=== PATIENT | male | born 1950 | race Caucasian/White ===

== ENCOUNTER 2018-12-04 18:34 | Inpatient (IN) | payer MEDICARE ==
[~2018-12-04] VITALS: Ht 182.9 cm; Wt 102.4 kg
[2018-12-04] MEDS ORDERED: ALBUTEROL/IPRATROPIUM 2.5MG/0.5MG, 3 ML ONE (19:00)
[2018-12-04] MEDS ORDERED: ALBUTEROL/IPRATROPIUM 2.5MG/0.5MG, 3 ML NPPB ONE (19:00)
[2018-12-04] MEDS ORDERED: ASPIRIN 81 MG TABLET CHEW PO ONE (19:00)
[2018-12-04] MEDS ORDERED: FUROSEMIDE 40 MG/4 ML IVPush ONE ×2 (19:00)
[2018-12-04] MEDS ORDERED: NITROGLYCERIN OINT 2%, 1GM TP ONE ×2 (19:00→19:13)
[2018-12-04] MEDS ORDERED: MORPHINE SULFATE 4 MG/ML, 1ML IVPush PRN (19:00)
[2018-12-04] MEDS ORDERED: PLEASE ENTER ALLERGIES MC SCH (19:00)
[2018-12-04] MEDS ORDERED: SODIUM CHLORIDE FLUSH 10ML SYR IVF ONE (19:00)
[2018-12-04] MEDS ORDERED: FUROSEMIDE 40 MG/4 ML ONE (19:13)
[2018-12-04] MEDS ORDERED: ASPIRIN 81 MG TABLET CHEW ONE (19:13)
[2018-12-04 19:22] LABS: MD YES; MEAN CORPUSCULAR HEMOGLOBIN 32.3 pg (27.5-34.5); MEAN CORPUSCULAR HGB CONC 33.3 g/dL (33.2-36.2); MEAN CORPUSCULAR VOLUME 97.1 fL (81-97); MEAN PLATELET VOLUME 8.7 fL (7.4-10.4); PLATELET COUNT 96 x10^3/uL (130-400); RED BLOOD COUNT 6.36 x10^6/uL (4.38-5.82); RED CELL DISTRIBUTION WIDTH 17.6 % (9.4-14.8)
--- NOTE | 2018-12-04 19:37 | NUR ---
LAB CALLS AND REPORTS THAT ARE GOING TO REDRAW GREEN TOP FEEL SPECIMEN IS HEMOLYZED AND HAVE A K OF GREATER THAN 5. PRIMARY NURSE AND MD AWARE
--- NOTE | 2018-12-04 19:52 | NUR ---
PT. MEDICATED PER NOV. ALL MONITORS HAVE BEEN IN PLACE SINCE ARRIVAL. FAMILY REMAINS AT BS FOR SUPPORT. CALL LIGHT HAS BEEN IN REACH. PT. REPORTS FEELING BETTER AFTER BREATHING TX. 4LO2 VIA NC IN USE TO MAINTAIN O2 AT 93%. PT. RATE 90'S-105 ON MONITOR WITH FREQUENT ECTOPY. PT. DOES DENY ANY PAIN OR DISCOMFORT AT THIS TIME. 3+ BILAT LEG SWELLING NOTED. URINAL AT BS AND PT. VERBALIZED UNDERSTANDING TO CALL FOR ASSISTANCE. LAB AT BS FOR RE-DRAW.
[2018-12-04 20:09] LABS: BASOS#(MANUAL) 0.08 x10^3/uL (0-0.1); BASOS% (MANUAL) 1 % (0-1); EOS#(MANUAL) 0.16 x10^3/uL (0.0-0.4); EOS% (MANUAL) 2 % (1-7); LYMPH#(MANUAL) 1.86 x10^3/uL (1-3.4); LYMPHS% (MANUAL) 23 % (22-44); MONOS#(MANUAL) 0.97 x10^3/uL (0.3-2.7); MONOS% (MANUAL) 12 % (2-9); SEG#(MANUAL) 5.02 x10^3/uL (1.8-6.8); SEGS% (MANUAL) 62 % (42-75)
[2018-12-04 20:13] LABS: POLYCHROMASIA 1+
[2018-12-04 20:17] LABS: <PLATELET ESTIMATE> DECREASED; <PLT MORPHOLOGY> NORMAL PLT MORPH
[2018-12-04 20:19] LABS: INTERNATIONAL NORMALIZED RATIO 1.11 (0.93-1.1); PROTHROMBIN TIME 11.6 Seconds (9.6-11.5)
[2018-12-04 20:22] LABS: ALANINE AMINOTRANSFERASE 40 U/L (12-78); ANION GAP 2 mmol/L (5-15); CALCIUM 8.4 mg/dL (8.5-10.1); CHLORIDE 107 mmol/L (98-107); CREATININE 1.28 mg/dL (0.7-1.3); T4 (THYROXINE) 7.4 mcg/dL (4.5-12.1)
[2018-12-04 20:26] LABS: ALKALINE PHOSPHATASE 75 U/L (45-117); BILIRUBIN,TOTAL 0.6 mg/dL (0.2-1.0); TOTAL PROTEIN 6.4 g/dL (6.4-8.2); TROPONIN I 0.069 ng/mL (0.000-0.045)
--- NOTE | 2018-12-04 21:20 | NUR ---
DR. HUIZAR HAD BEEN BACK IN TO EVAL PT. AND DISCUSS POC FOR ADMIT WITH PT. AND FAMILY. PT. FAMILY BROUGHT HIM A SANDWICH FROM [employer] C[employer] PER OK FROM DR. HUIZAR. PT. DENIES OTHER NEEDS.
--- NOTE | 2018-12-04 21:44 | NUR ---
1ST ATTEMPT TO CALL REPORT TO FLOOR.
--- NOTE | 2018-12-04 21:51 | NUR ---
REPORT TO RAHEEM ARRIOLA. FLOOR READY FOR PT. TRANSPORT.
[2018-12-04 22:20] VITALS: BP 113/73
[2018-12-04] MEDS ORDERED: BISACODYL 10 MG SUPP PR PRN (22:30)
[2018-12-04] MEDS ORDERED: ACETAMINOPHEN 325 MG TABLET PO PRN (22:30)
[2018-12-04] MEDS ORDERED: ONDANSETRON ODT 4 MG PO PRN (22:30)
[2018-12-04 22:50] LABS: FOLATE LEVEL 12.3 ng/mL (3.1-17.5)
[2018-12-04] MEDS: NICOTINE 14MG/24 HR PATCH.TD24 TD SCH (23:21)
[2018-12-04] MEDS: SODIUM CHLORIDE FLUSH 10ML SYR IVF SCH (23:27)
[2018-12-05 02:02] VITALS: BP 118/74
[2018-12-05 02:47] LABS: BASOPHILS # (AUTO) 0.06 x10^3/uL (0-0.1); BASOPHILS % (AUTO) 1 % (0-1); EOSINOPHILS # (AUTO) 0.08 x10^3/uL (0-0.4); EOSINOPHILS % (AUTO) 1 % (1-7); LYMPHOCYTES # (AUTO) 1.07 x10^3/uL (1-3.4); LYMPHOCYTES % (AUTO) 13 % (22-44); MD NO; MEAN CORPUSCULAR HGB CONC 32.4 g/dL (33.2-36.2); MEAN CORPUSCULAR VOLUME 98.8 fL (81-97); MONOCYTES % (AUTO) 11 % (2-9); NEUTROPHILS # (AUTO) 5.88 x10^3/uL (1.8-6.8); NEUTROPHILS % (AUTO) 74 % (42-75); PLATELET COUNT 100 x10^3/uL (130-400); RED BLOOD COUNT 6.23 x10^6/uL (4.38-5.82); RED CELL DISTRIBUTION WIDTH 18.3 % (9.4-14.8)
[2018-12-05 03:08] LABS: ALANINE AMINOTRANSFERASE 44 U/L (12-78); ALBUMIN 2.9 g/dL (3.4-5.0); ANION GAP 6 mmol/L (5-15); CALCIUM 8.3 mg/dL (8.5-10.1); CHLORIDE 105 mmol/L (98-107); CREATININE 1.42 mg/dL (0.7-1.3)
[2018-12-05 03:11] LABS: ALKALINE PHOSPHATASE 85 U/L (45-117); BILIRUBIN,TOTAL 0.5 mg/dL (0.2-1.0); TOTAL PROTEIN 6.5 g/dL (6.4-8.2)
[2018-12-05 05:59] VITALS: BP 97/74
[2018-12-05] MEDS ORDERED: CARVEDILOL 3.125 MG TABLET PO SCH (06:00)
[2018-12-05 07:30] VITALS: BP 105/62
[2018-12-05 08:24] VITALS: BP 114/77
[2018-12-05] MEDS: FUROSEMIDE 40 MG/4 ML IV SCH ×3 (08:37→21:03)
[2018-12-05] MEDS: SODIUM CHLORIDE FLUSH 10ML SYR IVF SCH ×2 (08:38→21:04)
[2018-12-05] MEDS: SENNA/DOCUSATE TABLET PO SCH (08:40)
[2018-12-05] MEDS: POLYETHYLENE GLYCOL 17 GM PACKET PO SCH (08:41)
[2018-12-05 09:14] LABS: TROPONIN I 0.072 ng/mL (0.000-0.045)
[2018-12-05] MEDS: methylPREDNISolone SOD SUCC 125 MG/2 ML IVPush SCH ×2 (09:43→17:00)
[2018-12-05 10:35] LABS: CHLORIDE,URINE RANDOM 119 mmol/L; POTASSIUM,URINE RANDOM 25 mmol/L; SODIUM,URINE RANDOM 93 mmol/L
[2018-12-05 10:41] LABS: CULTURE INDICATED? NO; MICROSCOPIC NOT IND
[2018-12-05] MEDS ORDERED: ETOMIDATE 20 MG/10 ML ONE (11:23)
[2018-12-05] MEDS ORDERED: ROCURONIUM 10MG/ML,5ML ONE (11:23)
[2018-12-05] MEDS ORDERED: PROPOFOL 10 MG/ML, 100ML IV ONE (11:23)
[2018-12-05] MEDS ORDERED: ALBUTEROL/IPRATROPIUM 2.5MG/0.5MG, 3 ML NPPB PRN (12:30)
[2018-12-05] MEDS ORDERED: ALBUTEROL SULFATE 2.5 MG/3 ML NPPB PRN (12:30)
[2018-12-05 14:00] VITALS: BP 118/76
[2018-12-05 15:19] LABS: ANION GAP 2 mmol/L (5-15); CALCIUM 8.8 mg/dL (8.5-10.1); CHLORIDE 103 mmol/L (98-107); CREATININE 1.33 mg/dL (0.7-1.3)
[2018-12-05 15:29] LABS: BASOPHILS # (AUTO) 0.03 x10^3/uL (0-0.1); BASOPHILS % (AUTO) 0 % (0-1); EOSINOPHILS # (AUTO) 0.05 x10^3/uL (0-0.4); EOSINOPHILS % (AUTO) 1 % (1-7); LYMPHOCYTES # (AUTO) 0.89 x10^3/uL (1-3.4); LYMPHOCYTES % (AUTO) 13 % (22-44); MEAN CORPUSCULAR HEMOGLOBIN 31.9 pg (27.5-34.5); MEAN CORPUSCULAR HGB CONC 32.3 g/dL (33.2-36.2); MEAN CORPUSCULAR VOLUME 98.8 fL (81-97); MEAN PLATELET VOLUME 9.4 fL (7.4-10.4); MONOCYTES # (AUTO) 0.54 x10^3/uL (0.2-0.8); MONOCYTES % (AUTO) 8 % (2-9); NEUTROPHILS # (AUTO) 5.26 x10^3/uL (1.8-6.8); NEUTROPHILS % (AUTO) 78 % (42-75); PLATELET COUNT 93 x10^3/uL (130-400); RED BLOOD COUNT 6.23 x10^6/uL (4.38-5.82); RED CELL DISTRIBUTION WIDTH 17.8 % (9.4-14.8)
[2018-12-05 15:30] LABS: MD SCAN
[2018-12-05] MEDS ORDERED: FENTANYL PF 100 MCG/2ML ONE (15:35)
[2018-12-05] MEDS ORDERED: AMPICILLIN/SULBACTAM 3 GM in SODIUM CHLORIDE 0.9% 100 ML IV SCH (16:00)
[2018-12-05] MEDS ORDERED: GLUCAGON 1 MG IM PRN (16:30)
[2018-12-05] MEDS ORDERED: DEXTROSE 50%, 50ML SYRINGE IVPush PRN (16:30)
[2018-12-05] MEDS ORDERED: SENNA/DOCUSATE TABLET NG PRN (16:30)
[2018-12-05] MEDS ORDERED: SENNOSIDES 8.8 MG/5 ML ORAL SOL NG PRN (16:30)
[2018-12-05] MEDS ORDERED: LIDOCAINE-MPF 1%, 2ML ENDO PRN (16:30)
[2018-12-05] MEDS ORDERED: SODIUM CHLORIDE 0.9%, 250ML IV ONE (16:30)
[2018-12-05] MEDS ORDERED: LACTULOSE 20 GM/30 ML UDC NG PRN (16:30)
[2018-12-05] MEDS ORDERED: DEXTROSE 4 GM TAB.CHEW PO PRN (16:30)
[2018-12-05] MEDS ORDERED: PHARMACY MAY ADJ FOR RENAL FX MC SCH (16:30)
[2018-12-05] MEDS ORDERED: SODIUM CHLORIDE 0.9% 1,000 ML IV SCH (16:30)
[2018-12-05] MEDS ORDERED: BISACODYL 10 MG SUPP PR PRN (16:30)
[2018-12-05] MEDS ORDERED: PHYTONADIONE 5 MG TABLET PO STA (16:34)
[2018-12-05] MEDS: AMPICILLIN/SULBACTAM 3 GM in SODIUM CHLORIDE 0.9% 50 ML IV SCH ×2 (16:49→23:38)
[2018-12-05 17:01] LABS: BASOPHILS # (AUTO) 0.02 x10^3/uL (0-0.1); BASOPHILS % (AUTO) 0 % (0-1); EOSINOPHILS % (AUTO) 0 % (1-7); LYMPHOCYTES # (AUTO) 0.24 x10^3/uL (1-3.4); LYMPHOCYTES % (AUTO) 4 % (22-44); MD NO; MEAN CORPUSCULAR HEMOGLOBIN 32.2 pg (27.5-34.5); MEAN CORPUSCULAR HGB CONC 32.9 g/dL (33.2-36.2); MEAN PLATELET VOLUME 9.3 fL (7.4-10.4); MONOCYTES # (AUTO) 0.15 x10^3/uL (0.2-0.8); MONOCYTES % (AUTO) 3 % (2-9); NEUTROPHILS # (AUTO) 5.32 x10^3/uL (1.8-6.8); NEUTROPHILS % (AUTO) 93 % (42-75); PLATELET COUNT 88 x10^3/uL (130-400); RED BLOOD COUNT 5.96 x10^6/uL (4.38-5.82)
[2018-12-05 17:03] LABS: INTERNATIONAL NORMALIZED RATIO 1.15 (0.93-1.1)
[2018-12-05 17:05] LABS: ANION GAP 2 mmol/L (5-15); CALCIUM 8.2 mg/dL (8.5-10.1); CHLORIDE 108 mmol/L (98-107); CREATININE 1.18 mg/dL (0.7-1.3); TRIGLYCERIDES 92 mg/dL (50-200)
[2018-12-05] MEDS: NOREPINEPHRINE 4 MG in SODIUM CHLORIDE 0.9% 246 ML IV PRN ×2 (17:25→17:52)
[2018-12-05] MEDS: ALBUTEROL/IPRATROPIUM 2.5MG/0.5MG, 3 ML INLINE SCH ×2 (18:44→22:07)
[2018-12-05] MEDS: PROPOFOL 100 ML IV PRN ×2 (19:09→21:58)
[2018-12-05] MEDS: INSULIN LISPRO 100 UNITS/ML, PEN SQ-INSULIN SCH (21:00)
[2018-12-05] MEDS ORDERED: INSULIN LISPRO 100 UNITS/ML, PEN SQ-INSULIN SCH (21:00)
[2018-12-05] MEDS ORDERED: SODIUM CHLORIDE FLUSH 10ML SYR IVF SCH (21:00)
[2018-12-05 21:40] LABS: MICROSCOPIC AUTO
[2018-12-05 21:42] LABS: CULTURE INDICATED? NO
[2018-12-05 21:50] LABS: AMPHETAMINE SCREEN, URINE Negative (Negative); BARBITURATE SCREEN, URINE Negative (Negative); BENZODIAZEPINE SCREEN, URINE Negative (Negative); CANNABINOID SCREEN, URINE Negative (Negative); COCAINE SCREEN, URINE Negative (Negative); METHADONE SCREEN, URINE Negative (Negative); OPIATE SCREEN, URINE Negative (Negative)
[2018-12-05] MEDS: NICOTINE 14MG/24 HR PATCH.TD24 TD SCH (23:37)
[2018-12-06] MEDS: methylPREDNISolone SOD SUCC 125 MG/2 ML IVPush SCH ×3 (01:32→17:35)
[2018-12-06] MEDS: PROPOFOL 100 ML IV PRN ×6 (01:33→22:19)
[2018-12-06] MEDS: ALBUTEROL/IPRATROPIUM 2.5MG/0.5MG, 3 ML INLINE SCH ×6 (02:41→22:00)
[2018-12-06] MEDS: INSULIN LISPRO 100 UNITS/ML, PEN SQ-INSULIN SCH ×4 (03:00→21:00)
[2018-12-06 04:00] VITALS: BP 102/72
[2018-12-06] MEDS: AMPICILLIN/SULBACTAM 3 GM in SODIUM CHLORIDE 0.9% 50 ML IV SCH ×4 (04:47→23:18)
[2018-12-06 04:54] LABS: BASOPHILS # (AUTO) 0.02 x10^3/uL (0-0.1); BASOPHILS % (AUTO) 0 % (0-1); EOSINOPHILS % (AUTO) 0 % (1-7); LYMPHOCYTES # (AUTO) 0.53 x10^3/uL (1-3.4); LYMPHOCYTES % (AUTO) 7 % (22-44); MD NO; MEAN CORPUSCULAR HEMOGLOBIN 32.3 pg (27.5-34.5); MEAN CORPUSCULAR HGB CONC 33.6 g/dL (33.2-36.2); MEAN CORPUSCULAR VOLUME 96.2 fL (81-97); MEAN PLATELET VOLUME 10.6 fL (7.4-10.4); MONOCYTES # (AUTO) 0.63 x10^3/uL (0.2-0.8); MONOCYTES % (AUTO) 9 % (2-9); NEUTROPHILS # (AUTO) 6.23 x10^3/uL (1.8-6.8); NEUTROPHILS % (AUTO) 84 % (42-75); PLATELET COUNT 134 x10^3/uL (130-400); RED BLOOD COUNT 6.12 x10^6/uL (4.38-5.82); RED CELL DISTRIBUTION WIDTH 18.2 % (9.4-14.8)
[2018-12-06 06:18] LABS: ALANINE AMINOTRANSFERASE 31 U/L (12-78); ALBUMIN 2.5 g/dL (3.4-5.0); ANION GAP 6 mmol/L (5-15); CALCIUM 8.3 mg/dL (8.5-10.1); CHLORIDE 105 mmol/L (98-107)
[2018-12-06 06:21] LABS: ALKALINE PHOSPHATASE 58 U/L (45-117); BILIRUBIN,TOTAL 1.1 mg/dL (0.2-1.0); CREATININE 1.09 mg/dL (0.7-1.3); TOTAL PROTEIN 5.4 g/dL (6.4-8.2)
[2018-12-06] MEDS: FUROSEMIDE 40 MG/4 ML IV SCH ×2 (07:51→17:35)
[2018-12-06] MEDS: SODIUM CHLORIDE FLUSH 10ML SYR IVF SCH ×2 (08:55→21:00)
[2018-12-06] MEDS: PANTOPRAZOLE 40 MG IV IV SCH (08:55)
[2018-12-06] MEDS: SENNA/DOCUSATE TABLET PO SCH (08:55)
[2018-12-06] MEDS: POLYETHYLENE GLYCOL 17 GM PACKET PO SCH (08:56)
[2018-12-06] MEDS ORDERED: MAGNESIUM SULFATE PMX 2GM/50ML 50 ML IVPB ONE (09:30)
[2018-12-06] MEDS ORDERED: SODIUM CHLORIDE 0.9% 1,000 ML IV SCH (09:30)
[2018-12-06] MEDS: FENTANYL PF 100 MCG/2ML IVPush PRN (18:03)
[2018-12-06] MEDS: NICOTINE 14MG/24 HR PATCH.TD24 TD SCH (23:18)
[2018-12-06] MEDS: NOREPINEPHRINE 4 MG in SODIUM CHLORIDE 0.9% 246 ML IV PRN (23:24)
[2018-12-07] MEDS: PROPOFOL 100 ML IV PRN ×3 (01:37→04:17)
[2018-12-07] MEDS: methylPREDNISolone SOD SUCC 125 MG/2 ML IVPush SCH ×2 (01:47→08:44)
[2018-12-07] MEDS: FENTANYL PF 100 MCG/2ML IVPush PRN ×3 (01:59→17:16)
[2018-12-07] MEDS: ALBUTEROL/IPRATROPIUM 2.5MG/0.5MG, 3 ML INLINE SCH ×2 (02:30→06:00)
[2018-12-07] MEDS: INSULIN LISPRO 100 UNITS/ML, PEN SQ-INSULIN SCH ×4 (03:00→21:37)
[2018-12-07 04:00] VITALS: BP 99/54
[2018-12-07] MEDS: AMPICILLIN/SULBACTAM 3 GM in SODIUM CHLORIDE 0.9% 50 ML IV SCH ×4 (04:43→22:38)
[2018-12-07 04:54] LABS: MEAN CORPUSCULAR HEMOGLOBIN 31.3 pg (27.5-34.5); MEAN CORPUSCULAR HGB CONC 32.6 g/dL (33.2-36.2); RED BLOOD COUNT 6.34 x10^6/uL (4.38-5.82); RED CELL DISTRIBUTION WIDTH 17.5 % (9.4-14.8)
[2018-12-07 05:09] LABS: MEAN PLATELET VOLUME 9.4 fL (7.4-10.4); PLATELET COUNT 104 x10^3/uL (130-400)
[2018-12-07 05:10] LABS: BASOPHILS # (AUTO) 0.02 x10^3/uL (0-0.1); BASOPHILS % (AUTO) 0 % (0-1); EOSINOPHILS % (AUTO) 0 % (1-7); LYMPHOCYTES # (AUTO) 0.62 x10^3/uL (1-3.4); LYMPHOCYTES % (AUTO) 6 % (22-44); MD SCAN; MONOCYTES % (AUTO) 7 % (2-9); NEUTROPHILS % (AUTO) 87 % (42-75)
[2018-12-07 07:48] LABS: ANION GAP 8 mmol/L (5-15); CALCIUM 8.6 mg/dL (8.5-10.1); CHLORIDE 102 mmol/L (98-107)
[2018-12-07] MEDS: FUROSEMIDE 40 MG/4 ML IV SCH ×2 (08:43→17:16)
[2018-12-07] MEDS: PANTOPRAZOLE 40 MG IV IV SCH (08:44)
[2018-12-07] MEDS: SENNA/DOCUSATE TABLET PO SCH (08:44)
[2018-12-07] MEDS: SODIUM CHLORIDE FLUSH 10ML SYR IVF SCH ×2 (08:44→20:56)
[2018-12-07] MEDS: POLYETHYLENE GLYCOL 17 GM PACKET PO SCH (08:44)
[2018-12-07] MEDS ORDERED: POTASSIUM CHLORIDE 10% 40 MEQ/30 ML UDC ONE (09:16)
[2018-12-07] MEDS ORDERED: POTASSIUM CHLORIDE 20 MEQ PACKET PO ONE (09:30)
--- NOTE | 2018-12-07 10:51 | NUR ---
TF GOAL: w/ propofol: VITAL HIGH PROTEIN @ 65 ml/hr off propofol: VITAL HIGH PROTEIN @ 70ml/hr
[2018-12-07] MEDS: ALBUTEROL/IPRATROPIUM 2.5MG/0.5MG, 3 ML NPPB SCH ×3 (14:00→23:00)
[2018-12-07] MEDS: methylPREDNISolone SOD SUCC 40 MG/ML IVPush SCH (17:16)
[2018-12-07] MEDS: NICOTINE 14MG/24 HR PATCH.TD24 TD SCH (22:38)
[2018-12-08] MEDS: methylPREDNISolone SOD SUCC 40 MG/ML IVPush SCH ×2 (01:09→09:13)
[2018-12-08 04:00] VITALS: BP 128/59
[2018-12-08] MEDS: AMPICILLIN/SULBACTAM 3 GM in SODIUM CHLORIDE 0.9% 50 ML IV SCH (04:25)
[2018-12-08 04:35] LABS: MEAN CORPUSCULAR HEMOGLOBIN 32.2 pg (27.5-34.5); MEAN CORPUSCULAR HGB CONC 33.1 g/dL (33.2-36.2); MEAN CORPUSCULAR VOLUME 97.3 fL (81-97); PLATELET COUNT 81 x10^3/uL (130-400); RED BLOOD COUNT 5.95 x10^6/uL (4.38-5.82); RED CELL DISTRIBUTION WIDTH 17.8 % (9.4-14.8)
[2018-12-08 05:11] LABS: BASOPHILS # (AUTO) 0.04 x10^3/uL (0-0.1); BASOPHILS % (AUTO) 0 % (0-1); EOSINOPHILS # (AUTO) 0.02 x10^3/uL (0-0.4); EOSINOPHILS % (AUTO) 0 % (1-7); LYMPHOCYTES # (AUTO) 0.43 x10^3/uL (1-3.4); LYMPHOCYTES % (AUTO) 4 % (22-44); MD SCAN; MONOCYTES # (AUTO) 0.75 x10^3/uL (0.2-0.8); MONOCYTES % (AUTO) 7 % (2-9); NEUTROPHILS # (AUTO) 8.98 x10^3/uL (1.8-6.8); NEUTROPHILS % (AUTO) 88 % (42-75)
[2018-12-08 06:08] LABS: ANION GAP 8 mmol/L (5-15); CALCIUM 8.3 mg/dL (8.5-10.1); CHLORIDE 103 mmol/L (98-107); CREATININE 1.17 mg/dL (0.7-1.3)
[2018-12-08] MEDS ORDERED: ALBUTEROL/IPRATROPIUM 2.5MG/0.5MG, 3 ML NPPB SCH (07:00)
[2018-12-08] MEDS: INSULIN LISPRO 100 UNITS/ML, PEN SQ-INSULIN SCH ×4 (08:05→21:46)
[2018-12-08] MEDS ORDERED: FUROSEMIDE 40 MG/4 ML IV SCH (09:00)
[2018-12-08] MEDS: SODIUM CHLORIDE FLUSH 10ML SYR IVF SCH ×2 (09:14→21:46)
[2018-12-08] MEDS: SENNA/DOCUSATE TABLET PO SCH (09:14)
[2018-12-08] MEDS: POLYETHYLENE GLYCOL 17 GM PACKET PO SCH (09:14)
[2018-12-08 13:38] VITALS: BP 98/58
[2018-12-08 20:30] VITALS: BP 101/67
[2018-12-08] MEDS: NICOTINE 14MG/24 HR PATCH.TD24 TD SCH (21:47)
[2018-12-09 04:06] VITALS: BP 104/68
[2018-12-09 05:45] LABS: ANION GAP 2 mmol/L (5-15); CALCIUM 8.3 mg/dL (8.5-10.1); CHLORIDE 98 mmol/L (98-107)
[2018-12-09 05:46] LABS: CREATININE 1.03 mg/dL (0.7-1.3)
[2018-12-09 06:43] VITALS: BP 104/64
[2018-12-09] MEDS: INSULIN LISPRO 100 UNITS/ML, PEN SQ-INSULIN SCH ×4 (07:00→20:11)
[2018-12-09] MEDS: SODIUM CHLORIDE FLUSH 10ML SYR IVF SCH ×2 (08:41→21:34)
[2018-12-09] MEDS: SENNA/DOCUSATE TABLET PO SCH (08:41)
[2018-12-09] MEDS: POLYETHYLENE GLYCOL 17 GM PACKET PO SCH (08:41)
[2018-12-09] MEDS ORDERED: FUROSEMIDE 40 MG TABLET PO SCH (09:00)
[2018-12-09 13:51] VITALS: BP 94/56
[2018-12-09 19:45] VITALS: BP 121/82
[2018-12-09] MEDS: NICOTINE 14MG/24 HR PATCH.TD24 TD SCH (21:35)
[2018-12-10 03:55] VITALS: BP 119/72
[2018-12-10 05:53] LABS: CALCIUM 7.9 mg/dL (8.5-10.1); CHLORIDE 99 mmol/L (98-107)
[2018-12-10 05:56] LABS: ANION GAP 1 mmol/L (5-15); CREATININE 0.78 mg/dL (0.7-1.3)
[2018-12-10] MEDS: INSULIN LISPRO 100 UNITS/ML, PEN SQ-INSULIN SCH ×4 (07:00→21:24)
[2018-12-10 08:45] VITALS: BP 128/85
[2018-12-10] MEDS: POLYETHYLENE GLYCOL 17 GM PACKET PO SCH (09:00)
[2018-12-10] MEDS: SENNA/DOCUSATE TABLET PO SCH (09:00)
[2018-12-10] MEDS: SODIUM CHLORIDE FLUSH 10ML SYR IVF SCH ×2 (09:13→21:24)
[2018-12-10 13:40] VITALS: BP 124/78
[2018-12-10] MEDS ORDERED: AcetaZOLAMIDE INJ 500 MG IVPush SCH (16:00)
[2018-12-10 19:58] VITALS: BP 135/65
[2018-12-10] MEDS: NICOTINE 14MG/24 HR PATCH.TD24 TD SCH (22:27)
[2018-12-10] MEDS: DIPHENHYDRAMINE 50 MG CAPSULE PO PRN (22:27)
[2018-12-11 02:17] VITALS: BP 127/71
[2018-12-11 05:44] LABS: CALCIUM 7.8 mg/dL (8.5-10.1)
[2018-12-11 05:45] LABS: CREATININE 0.69 mg/dL (0.7-1.3)
[2018-12-11 05:51] LABS: ANION GAP 4 mmol/L (5-15); CHLORIDE 101 mmol/L (98-107)
[2018-12-11 06:20] LABS: MEAN CORPUSCULAR HEMOGLOBIN 32.1 pg (27.5-34.5); MEAN CORPUSCULAR HGB CONC 32.6 g/dL (33.2-36.2); MEAN CORPUSCULAR VOLUME 98.4 fL (81-97); RED BLOOD COUNT 5.75 x10^6/uL (4.38-5.82); RED CELL DISTRIBUTION WIDTH 17.4 % (9.4-14.8)
[2018-12-11 06:53] LABS: MEAN PLATELET VOLUME 9.8 fL (7.4-10.4); PLATELET COUNT 72 x10^3/uL (130-400)
[2018-12-11 06:55] LABS: MD SCAN
[2018-12-11 06:56] LABS: BASOPHILS # (AUTO) 0.03 x10^3/uL (0-0.1); BASOPHILS % (AUTO) 0 % (0-1); EOSINOPHILS % (AUTO) 2 % (1-7); LYMPHOCYTES # (AUTO) 2.06 x10^3/uL (1-3.4); LYMPHOCYTES % (AUTO) 21 % (22-44); MONOCYTES # (AUTO) 1.18 x10^3/uL (0.2-0.8); MONOCYTES % (AUTO) 12 % (2-9); NEUTROPHILS # (AUTO) 6.43 x10^3/uL (1.8-6.8); NEUTROPHILS % (AUTO) 65 % (42-75)
[2018-12-11] MEDS: INSULIN LISPRO 100 UNITS/ML, PEN SQ-INSULIN SCH ×4 (07:00→21:26)
[2018-12-11] MEDS ORDERED: SODIUM CHLORIDE 0.9% 1,000 ML IV SCH (08:00)
[2018-12-11 08:22] LABS: O2 FLOW 4 L/min
[2018-12-11] MEDS: POLYETHYLENE GLYCOL 17 GM PACKET PO SCH (08:38)
[2018-12-11] MEDS: SENNA/DOCUSATE TABLET PO SCH (08:39)
[2018-12-11] MEDS: SODIUM CHLORIDE FLUSH 10ML SYR IVF SCH ×2 (08:39→21:26)
[2018-12-11 08:45] VITALS: BP 123/69
[2018-12-11 12:48] VITALS: BP 120/70
[2018-12-11 13:45] VITALS: BP 106/71
[2018-12-11 20:24] VITALS: BP 127/74
[2018-12-11] MEDS: DIPHENHYDRAMINE 50 MG CAPSULE PO PRN (22:06)
[2018-12-11] MEDS: NICOTINE 14MG/24 HR PATCH.TD24 TD SCH (22:06)
[2018-12-12 01:18] VITALS: BP 142/84
[2018-12-12] MEDS ORDERED: SODIUM CHLORIDE 0.9% 1,000 ML IV SCH (03:00)
[2018-12-12 05:16] LABS: CALCIUM 7.9 mg/dL (8.5-10.1); CHLORIDE 102 mmol/L (98-107); CREATININE 0.66 mg/dL (0.7-1.3)
[2018-12-12 05:20] LABS: ANION GAP -1 mmol/L (5-15)
[2018-12-12 06:55] VITALS: BP 121/87
[2018-12-12] MEDS: INSULIN LISPRO 100 UNITS/ML, PEN SQ-INSULIN SCH ×4 (07:00→20:37)
[2018-12-12] MEDS: SENNA/DOCUSATE TABLET PO SCH (08:58)
[2018-12-12] MEDS: POLYETHYLENE GLYCOL 17 GM PACKET PO SCH (08:58)
[2018-12-12] MEDS: SODIUM CHLORIDE FLUSH 10ML SYR IVF SCH ×2 (08:59→20:37)
[2018-12-12 13:40] VITALS: BP 124/72
[2018-12-12] MEDS ORDERED: AcetaZOLAMIDE INJ 500 MG IVPush ONE (15:00)
[2018-12-12 19:11] VITALS: BP 128/82
[2018-12-12] MEDS: AcetaZOLAMIDE INJ 500 MG IVPush SCH (20:22)
[2018-12-12] MEDS: NICOTINE 14MG/24 HR PATCH.TD24 TD SCH (22:13)
[2018-12-13 04:29] VITALS: BP 101/53
[2018-12-13] MEDS: INSULIN LISPRO 100 UNITS/ML, PEN SQ-INSULIN SCH ×4 (07:00→21:00)
[2018-12-13] MEDS: AcetaZOLAMIDE INJ 500 MG IVPush SCH ×2 (07:34→21:38)
[2018-12-13] MEDS: SENNA/DOCUSATE TABLET PO SCH (07:35)
[2018-12-13] MEDS: POLYETHYLENE GLYCOL 17 GM PACKET PO SCH (07:35)
[2018-12-13] MEDS: SODIUM CHLORIDE FLUSH 10ML SYR IVF SCH ×2 (07:35→21:39)
[2018-12-13 09:12] VITALS: BP 92/57
[2018-12-13 15:31] VITALS: BP 116/71
[2018-12-13 18:49] VITALS: BP 114/69
[2018-12-13] MEDS: NICOTINE 14MG/24 HR PATCH.TD24 TD SCH (21:39)
[2018-12-14 00:47] VITALS: BP 107/68
[2018-12-14] MEDS: DIPHENHYDRAMINE 50 MG CAPSULE PO PRN ×2 (03:21→21:42)
[2018-12-14 05:24] LABS: O2 FLOW 4 L/min
[2018-12-14 05:45] LABS: CALCIUM 8.7 mg/dL (8.5-10.1); CREATININE 0.78 mg/dL (0.7-1.3)
[2018-12-14 06:03] LABS: ANION GAP 5 mmol/L (5-15); CHLORIDE 105 mmol/L (98-107)
[2018-12-14 06:52] VITALS: BP 107/73
[2018-12-14] MEDS: INSULIN LISPRO 100 UNITS/ML, PEN SQ-INSULIN SCH ×4 (08:50→20:40)
[2018-12-14] MEDS: AcetaZOLAMIDE INJ 500 MG IVPush SCH ×2 (09:00→21:36)
[2018-12-14] MEDS: POLYETHYLENE GLYCOL 17 GM PACKET PO SCH (09:00)
[2018-12-14] MEDS: SENNA/DOCUSATE TABLET PO SCH (09:00)
[2018-12-14] MEDS: SODIUM CHLORIDE FLUSH 10ML SYR IVF SCH ×2 (09:00→21:51)
[2018-12-14 13:16] VITALS: BP 107/67
[2018-12-14] MEDS ORDERED: FUROSEMIDE 20 MG/2 ML IV ONE (17:30)
[2018-12-14] MEDS ORDERED: OMNIPAQUE 350 MG/ML, 100ML BOTTLE ONE (18:19)
[2018-12-14 21:04] VITALS: BP 124/77
[2018-12-14] MEDS: NICOTINE 14MG/24 HR PATCH.TD24 TD SCH (21:36)
[2018-12-14] MEDS: ENOXAPARIN 100 MG/ML SQ SCH (21:51)
[2018-12-15 02:12] VITALS: BP 119/75
[2018-12-15 06:18] LABS: BASOPHILS # (AUTO) 0.06 x10^3/uL (0-0.1); BASOPHILS % (AUTO) 1 % (0-1); EOSINOPHILS # (AUTO) 0.14 x10^3/uL (0-0.4); EOSINOPHILS % (AUTO) 2 % (1-7); LYMPHOCYTES # (AUTO) 2.05 x10^3/uL (1-3.4); LYMPHOCYTES % (AUTO) 23 % (22-44); MD NO; MEAN CORPUSCULAR HEMOGLOBIN 32.2 pg (27.5-34.5); MEAN CORPUSCULAR VOLUME 97.7 fL (81-97); MEAN PLATELET VOLUME 8.6 fL (7.4-10.4); MONOCYTES # (AUTO) 1.32 x10^3/uL (0.2-0.8); MONOCYTES % (AUTO) 15 % (2-9); NEUTROPHILS # (AUTO) 5.27 x10^3/uL (1.8-6.8); NEUTROPHILS % (AUTO) 60 % (42-75); PLATELET COUNT 113 x10^3/uL (130-400); RED BLOOD COUNT 5.79 x10^6/uL (4.38-5.82); RED CELL DISTRIBUTION WIDTH 17.2 % (9.4-14.8)
[2018-12-15 07:36] VITALS: BP 108/69
[2018-12-15] MEDS: ENOXAPARIN 100 MG/ML SQ SCH (08:00)
[2018-12-15] MEDS: SODIUM CHLORIDE FLUSH 10ML SYR IVF SCH (09:00)
[2018-12-15] MEDS: SENNA/DOCUSATE TABLET PO SCH (09:00)
[2018-12-15] MEDS: POLYETHYLENE GLYCOL 17 GM PACKET PO SCH (09:00)
[2018-12-15] MEDS: INSULIN LISPRO 100 UNITS/ML, PEN SQ-INSULIN SCH ×2 (09:03→11:00)
[2018-12-15] MEDS: AcetaZOLAMIDE INJ 500 MG IVPush SCH (09:40)
[2018-12-15 11:34] LABS: CALCIUM 8.6 mg/dL (8.5-10.1)
[2018-12-15 11:36] LABS: CREATININE 0.66 mg/dL (0.7-1.3)
[2018-12-15 11:46] LABS: ANION GAP 4 mmol/L (5-15); CHLORIDE 104 mmol/L (98-107)
[2018-12-15] MEDS ORDERED: APIXABAN 5 MG TABLET PO SCH (12:30)
[2018-12-15] MEDS ORDERED: IPRA3AMP30 NPPB (13:17)
[2018-12-15] MEDS ORDERED: SENN-177 PO (13:17)
[2018-12-15] MEDS ORDERED: PRED5TAB PO (13:17)
[2018-12-15] MEDS ORDERED: APIX5TAB PO (13:17)
[2018-12-22] MEDS ORDERED: APIXABAN 5 MG TABLET PO SCH (09:00)
== END 2018-12-15 15:42 | disposition home or self-care (01) | DRG 208 ==
LOC: ED 20:08 → EDIP 20:57 → 5SO 22:14 → CCU 12-05 15:18 → 4WST 12-08 12:43 → DCLOUNGE 12-15 15:27
PROVIDERS: ADMIT Family Medicine; ATTEND Family Medicine
PROC: 5A1945Z Respiratory Ventilation, 24-96 Consecutive Hours (ICD-10-PCS; principal; 2018-12-05)
PROC: 0BH17EZ Insertion of Endotracheal Airway into Trachea, Via Natural or Artificial Opening (ICD-10-PCS; 2018-12-05)
PROC: 0T9B70Z Drainage of Bladder with Drainage Device, Via Natural or Artificial Opening (ICD-10-PCS; 2018-12-05)
PROC: 02HV33Z Insertion of Infusion Device into Superior Vena Cava, Percutaneous Approach (ICD-10-PCS; 2018-12-05)
PROC: B548ZZA Ultrasonography of Superior Vena Cava, Guidance (ICD-10-PCS; 2018-12-05)
DX: J96.01 Acute respiratory failure with hypoxia (principal); J18.9 Pneumonia, unspecified organism; I50.43 Acute on chronic combined systolic (congestive) and diastolic (congestive) heart failure; G93.41 Metabolic encephalopathy; N17.0 Acute kidney failure with tubular necrosis; I26.09 Other pulmonary embolism with acute cor pulmonale; E44.0 Moderate protein-calorie malnutrition; E87.3 Alkalosis; J44.1 Chronic obstructive pulmonary disease with (acute) exacerbation; J44.0 Chronic obstructive pulmonary disease with (acute) lower respiratory infection; L03.115 Cellulitis of right lower limb; L03.116 Cellulitis of left lower limb; Z99.11 Dependence on respirator [ventilator] status; J96.02 Acute respiratory failure with hypercapnia; D69.6 Thrombocytopenia, unspecified; D75.1 Secondary polycythemia; E03.9 Hypothyroidism, unspecified; F12.90 Cannabis use, unspecified, uncomplicated; I07.1 Rheumatic tricuspid insufficiency; I27.29 Other secondary pulmonary hypertension; I48.91 Unspecified atrial fibrillation; I49.3 Ventricular premature depolarization; K59.00 Constipation, unspecified; N50.89 Other specified disorders of the male genital organs; Z82.5 Family history of asthma and other chronic lower respiratory diseases; Z99.81 Dependence on supplemental oxygen; Z72.0 Tobacco use
CPT/HCPCS: 36415; 36600; 70450; 71045; 71250; 71275; 80048; 80053; 80307; 81001; 81003; 82436; 82607; 82668; 82746; 82803; 82962; 83605; 83735; 83880; 84100; 84133; 84300; 84436; 84439; 84443; 84478; 84484; 85025; 85610; 85730; 87040; 87070; 87081; 87205; 93005; 93306; 94002; 94003; 94640; 96374; G0378; J0295; J1940; J2704; J3010; J7620; Q9967; C9113; J1120; J1815; J2920; J2930; J3475; J7030; J7050; J7512

== ENCOUNTER → 2019-02-18 | Outpatient (CLI) | payer MEDICARE ==
[~2019-02-18] MED LIST: APIX5TAB PO; IPRA3AMP30 NPPB; PRED5TAB PO; SENN-177 PO
== END | disposition home or self-care (01) ==
LOC: CVU 15:10
PROVIDERS: ATTEND Registered Nurse
DX: I08.3 Combined rheumatic disorders of mitral, aortic and tricuspid valves (principal); Z87.891 Personal history of nicotine dependence
CPT/HCPCS: 93306